=== PATIENT | male | born 1955 | race African-American/Black ===

== ENCOUNTER 2017-09-21 14:29 | Emergency (ER) | payer OTHER ==
[~2017-09-21] VITALS: Ht 167.6 cm; Wt 59.0 kg
[2017-09-21 14:33] VITALS: BP 134/78
[2017-09-21] MEDS ORDERED: Albuterol ud Inhalation HHN ONE (14:45)
--- NOTE | 2017-09-21 15:43 | Emergency Room Report ---
History of Present Illness General Chief Complaint: Headache Source: Patient Present Illness HPI 62-year-old male presents to the emergency department complaining of that at 10 in severity slow onset progressive frontal headache times approximately 3 hours. Patient reports onset of headache was after being worked up/angry. . Patient also reports 2 episodes of episodic with/without visual/hearing changes. Vertigo since this a.m. Patient states that symptoms were elicited when he got out of bed and when he was getting up from a chair. He describes that the room was spinning around him. He denies nausea vomiting. Denies imbalance dizziness otherwise. Denies recent head trauma or fall. Denies fevers, chills, neck pain or stiffness. Patient reports increased wheezing times one week states he has a history of sarcoidosis and often will require short course steroids if his wheezing did not improve. Denies swelling of the lower extremities. Denies night sweats, or recent significant changes in weight. Denies CP, Palpitations, LOC, AMS, dizziness, Changes in Vision, Sensation, paresthesias, or a sudden severe headache. Allergies: Coded Allergies: No Known Allergies (Unverified , 09/21/17) Patient History Past Medical History: see triage record Past Surgical History: none Pertinent Family History: none Reviewed Nursing Documentation: PMH: Agreed, PSxH: Agreed Nursing Documentation-PMH History Of Psychiatric Problem: Yes - bi-polar Review of Systems All Other Systems: negative except mentioned in HPI Physical Exam Vital Signs Date Time Temp Pulse Resp B/P (MAP) Pulse Ox O2 Delivery O2 Flow Rate FiO2 09/21/17 14:22 97.9 68 18 134/78 95 Nasal Cannula Sp02 EP Interpretation: reviewed, normal General Appearance: no apparent distress, alert, GCS 15, non-toxic Head: normocephalic, atraumatic Eyes: bilateral eye normal inspection, bilateral eye PERRL ENT: hearing grossly normal, normal voice Neck: full range of motion Respiratory: chest non-tender, normal breath sounds, speaking full sentences, wheezing Cardiovascular #1: regular rate, rhythm, no edema, normal capillary refill Gastrointestinal: non tender, soft Musculoskeletal: back normal, gait/station normal, normal range of motion, non- tender Neurologic: alert, oriented x3, responsive, motor strength/tone normal, sensory intact, speech normal, no pronator, other - Nystagmus is not elicited upon Joselito-Hallpike symptoms are also not real elicited upon Florence-Hallpike. Negative pronator drift, Negative Romberg, no Ataxia. equal manager demand strength. No motor weakness noted. , grossly normal Psychiatric: judgement/insight normal Skin: normal color, no rash, warm/dry, well hydrated Lymphatic: no adenopathy Medical Decision Making PA Attestation Dr. husain is my supervising Physician whom patient management has been discussed with. Diagnostic Impression: Primary Impression: Vertigo Additional Impressions: History of sarcoidosis Wheezing ER Course 62-year-old male presents to the emergency department complaining of that at 10 in severity slow onset progressive frontal headache times approximately 3 hours. Patient reports onset of headache was after being worked up/angry. . Patient also reports 2 episodes of episodic with/without visual/hearing changes. Vertigo since this a.m. Patient states that symptoms were elicited when he got out of bed and when he was getting up from a chair. He describes that the room was spinning around him. He denies nausea vomiting. Denies imbalance dizziness otherwise. Denies recent head trauma or fall. Denies fevers, chills, neck pain or stiffness. Patient reports increased wheezing times one week states he has a history of sarcoidosis and often will require short course steroids if his wheezing did not improve. Denies swelling of the lower extremities. Denies night sweats, or recent significant changes in weight. Denies CP, Palpitations, LOC, AMS, dizziness, Changes in Vision, Sensation, paresthesias, or a sudden severe headache. Ddx considered but are not limited to Mnire's, BPPV, Labrinitis, cerebellar stroke, hypovolemia, cardiac cause. Vital signs: are WNL, pt. is afebrile H&PE are most consistent with :peripheral vertigo- Nystagmus is not elicited upon Joselito-Hallpike symptoms are also not real elicited upon Florence-Hallpike. Negative pronator drift, Negative Romberg, no Ataxia. ORDERS: None required at this time, diagnosis is clinical and pt. does not exhibit any red-flag signs or symptoms. ED INTERVENTIONS: - Tylenol PO -Meclizine PO - Albuterol Nebulized Tx. -I do not identify an emergent condition at this time. With current presentation , pt. is stable for close outpatient follow up and conservative treatment. D/ w pt. to return promptly to ED with worsening or new symptoms.- Pt. (and or responsible alliance party) verbalizes' understanding and agreement with proposed treatment plan.proposed treatment plan. Pt. did mention difficulty gaining weight and was requesting Ensure. D/w pt. that will give limited quantity rx, that he needs to follow up with PCP for managed care director eval or further eval for difficulty gaining weight. DISCHARGE: At this time pt. is stable for d/c to home. Will provide printed patient care instructions, and any necessary prescriptions. Care plan and follow up instructions have been discussed with the patient prior to discharge. Last Vital Signs Date Time Temp Pulse Resp B/P (MAP) Pulse Ox O2 Delivery O2 Flow Rate FiO2 09/21/17 15:26 69 18 100 Room Air 09/21/17 14:33 97.9 134/78 Disposition: HOME, SELF-CARE Condition: Stable Scripts Lactose-Free Food (Ensure High Protein) 237 Ml Liquid 237 ML PO BID for 14 Days, ML Prov: Sharon Young 09/21/17 Albuterol Sulfate* (ALBUTEROL SULFATE MDI*) 8.5 Gm Hfa.aer.ad 2 PUFF INH Q3H, #1 INH 0 Refills Prov: Sharon Young 09/21/17 Prednisone* (PREDNISONE*) 20 Mg Tablet 40 MG ORAL DAILY for 5 Days, #10 TAB Prov: Sharon Young 09/21/17 Meclizine Hcl* (VERTICALM*) 25 Mg Tablet 25 MG ORAL THREE TIMES A DAY for 7 Days, #21 TAB Prov: Sharon Young 09/21/17 Referrals: [facility],REFERRING (PCP) Patient Instructions: Vertigo Additional Instructions: Take medications as directed. Follow up with a Primary Care Provider in 3-5 days, even if your symptoms have resolved. --Please review list of primary care clinics, if you do not already have a primary care provider Return sooner to ED if new symptoms occur, or current symptoms become worse. Do not drink alcohol, drive, or operate heavy machinery while taking Meclizine as this may cause drowsiness. - Please note that this Emergency Department Report was dictated using [employer] manager technology software, occasionally this can lead to erroneous entry secondary to interpretation by the dictation equipment. Sharon Young Sep 21, 2017 15:43
[2017-09-21] MEDS ORDERED: PREDNISONE20 MG ORAL (15:45)
[2017-09-21] MEDS ORDERED: ALBUTEROL SULF8.5 GM INH (15:45)
[2017-09-21] MEDS ORDERED: Meclizine 25mg tab ORAL PRN (15:45)
[2017-09-21] MEDS ORDERED: VERTICALM25 MG ORAL (15:45)
[2017-09-21] MEDS ORDERED: ENSURE HIGH PR237 ML PO (15:45)
[2017-09-21 16:08] VITALS: BP 133/75
[2017-09-21 16:09] VITALS: BP 134/78
== END 2017-09-21 16:10 | disposition home or self-care (01) ==
LOC: EDBD 14:29 → EMR 14:40
DX: R42 Dizziness and giddiness (principal); R06.2 Wheezing; F31.9 Bipolar disorder, unspecified
CPT/HCPCS: 94640; 94664; 99283